=== PATIENT | female | born 1935 | race Caucasian/White ===

== ENCOUNTER 2018-12-15 12:49 | Outpatient (CLI) | payer MEDICARE, BC ==
--- NOTE | 2018-12-15 16:26 | MMO ---
Bilateral MAMMO Bilat Screen [facility]. CLINICAL HISTORY: Patient is 83 years old and is seen for screening. The patient has the following family history of breast cancer: sister, at age 60. The patient has a history of melanoma at age 70. VIEWS: The views performed were: bilateral craniocaudal with tomosynthesis and bilateral mediolateral oblique with tomosynthesis. FILMS COMPARED: The present examination has been compared to prior imaging studies performed at [facility] on 02/17/2007, 03/26/2009, 10/01/2010, 10/12/2012, 08/28/2014, 10/17/2015 and 10/20/2016, and at [facility] on 10/03/2003, 10/08/2004 and 01/06/2006. MAMMOGRAM FINDINGS: There are scattered fibroglandular densities. There are stable benign appearing calcifications seen in both breasts. There are no suspicious masses, suspicious calcifications, or new areas of architectural distortion. IMPRESSION: THERE IS NO MAMMOGRAPHIC EVIDENCE OF MALIGNANCY. A ROUTINE FOLLOW-UP MAMMOGRAM IN 1 YEAR IS RECOMMENDED. THE RESULTS OF THIS EXAM WERE SENT TO THE PATIENT. ACR BI-RADS Category 2 - Benign finding MAMMOGRAPHY NOTE: 1. A negative mammogram report should not delay a biopsy if a dominant of clinically suspicious mass is present. 2. Approximately 10% to 15% of breast cancers are not detected by mammography. 3. Adenosis and dense breasts may obscure an underlying neoplasm.
== END 2018-12-15 12:50 | disposition home or self-care (01) ==
LOC: BICMAMMO 12:49
PROVIDERS: ATTEND Internal Medicine
DX: Z12.31 Encounter for screening mammogram for malignant neoplasm of breast (principal); Z80.3 Family history of malignant neoplasm of breast; Z85.820 Personal history of malignant melanoma of skin
CPT/HCPCS: 77063; 77067

== ENCOUNTER 2019-02-05 10:44 | Emergency (ER) | payer MEDICARE, BC ==
[2019-02-05 11:14] LABS: #Basophils 0.1 thou/uL (0.0-0.2); #Eosinphils 0.1 thou/uL (0.0-0.7); #Lymphocytes 2.2 thou/uL (1.20-3.40); #Monocytes 0.5 thou/uL (0.11-0.59); #Neutrophils 3.2 thou/uL (1.40-6.50); %Basophils 1.9 % (0.0-1.0); %Lymphocytes 35.5 % (21.0-51.0); %Monocytes 7.9 % (0.0-10.0); %Neutrophils 52.7 % (42.0-75.0); Hemoglobin 12.8 g/dL (12.0-16.0); Mean Corpuscular HGB CONC 32.9 g/dL (32.0-36.0); Mean Corpuscular Volume 97.3 fL (78.0-98.0); Mean Platelet Volume 8.1 fL (7.4-10.4); Platelet Count 232 thou/uL (130-400); RBC Distribution Width 12.2 % (11.5-14.5); White Blood Cell (WBC) Count 6.1 thou/uL (4.8-10.8)
[2019-02-05 11:28] LABS: ALT (SGPT) Less than 7 U/L (8-55); AST (SGOT) 15 U/L (5-34); Alkaline Phosphatase 71 U/L (40-150); Anion Gap 19 mmol/L (10-20); BUN (Urea Nitrogen) 13 mg/dL (9.8-20.1); Bilirubin, Total 0.7 mg/dL (0.2-1.2); Calc. Creatinine Clearance 0 mL/min (70-130); Calcium 10.2 mg/dL (7.8-10.44); Carbon Dioxide 20 mmol/L (23-31); Chloride 100 mmol/L (98-107); Estimated GFR-MDRD 52; Globulin 3.1 g/dL (2.4-3.5); Glucose 98 mg/dL (83-110); Potassium 3.9 mmol/L (3.5-5.1); Protein, Total 7.1 g/dL (6.0-8.3); Sodium 135 mmol/L (136-145)
--- NOTE | 2019-02-05 11:39 | RAD ---
PORTABLE CHEST: HISTORY: Mental status change. COMPARISON: 10/24/2015. FINDINGS: Cardiomegaly again noted. Mild vascular congestion. Small bilateral effusions. Prominent aortic ca lcification and degenerative spine change. IMPRESSION: Cardiomegaly and mild congestive change. POS: OFF
[2019-02-05 12:27] LABS: Bilirubin Negative (Negative); Blood, Urine Negative (Negative); Clarity CLEAR (Clear); Glucose, Urine (Dipstick) Negative (Negative); Leukocyte Small (Negative); Nitrite Negative (Negative); Protein, Urine (Dipstick) Trace mg/dL (Neg-Trace); Specific Gravity, Urine 1.011 (1.002-1.036); pH, Urine 6.5 (5.0-9.0)
[2019-02-05 12:29] LABS: Bacteria/HPF None Seen HPF (None Seen); RBC/HPF 0-3 HPF (0-3); Squamous Epithelial 21-50 HPF (0-3)
[2019-02-05 12:30] LABS: Pathc Cast-AUWi Flag 12.37 (0-2.49)
[2019-02-05 12:36] LABS: Hyaline Casts/LPF 7-10 HYALINE CAST LPF (0-3 Hyaline)
== END 2019-02-05 13:05 | disposition home or self-care (01) ==
LOC: ERS 10:44
DX: F03.90 Unspecified dementia, unspecified severity, without behavioral disturbance, psychotic disturbance, mood disturbance, and anxiety (principal); N39.0 Urinary tract infection, site not specified; K21.9 Gastro-esophageal reflux disease without esophagitis; I10 Essential (primary) hypertension; Z87.891 Personal history of nicotine dependence; Z79.899 Other long term (current) drug therapy
CPT/HCPCS: 36415; 71045; 80053; 81003; 81015; 83605; 83690; 83880; 84484; 85025; 87086; 93005; 96360

== ENCOUNTER 2019-02-12 19:05 | Inpatient (IN) | payer MEDICARE, BC ==
[2019-02-12 19:29] LABS: #Basophils 0.1 thou/uL (0.0-0.2); #Eosinphils 0.2 thou/uL (0.0-0.7); #Monocytes 0.7 thou/uL (0.11-0.59); #Neutrophils 3.5 thou/uL (1.40-6.50); %Basophils 1.9 % (0.0-1.0); %Eosinophils 2.3 % (0.0-10.0); %Lymphocytes 39.5 % (21.0-51.0); %Monocytes 9.3 % (0.0-10.0); %Neutrophils 47.1 % (42.0-75.0); Hemoglobin 12.2 g/dL (12.0-16.0); Mean Corpuscular HGB CONC 33.1 g/dL (32.0-36.0); Mean Corpuscular Hemoglobin 32.1 pg (27.0-31.0); Mean Platelet Volume 8.1 fL (7.4-10.4); Platelet Count 269 thou/uL (130-400); RBC Distribution Width 11.8 % (11.5-14.5); White Blood Cell (WBC) Count 7.5 thou/uL (4.8-10.8)
--- NOTE | 2019-02-12 19:39 | RAD ---
AP view chest. HISTORY: Stroke. AP view chest demonstrates cardiomegaly. Calcification of the aorta seen. Pulmonary vascular congesti on noted. Some prominent lung interstitial changes also present. IMPRESSION: Cardiomegaly and pulmonary vascular congestion.
--- NOTE | 2019-02-12 19:47 | CT ---
CT brain. HISTORY: Dementia and altered mental status. There is diffuse cortical atrophy and deep white matter ischemic changes. No evidence of acute intracranial masses, hemorrhages or strokes seen. IMPRESSION: Cortical atrophy and deep white matter ischemic changes.
[2019-02-12 19:51] LABS: ALT (SGPT) 9 U/L (8-55); AST (SGOT) 18 U/L (5-34); Albumin 4.1 g/dL (3.4-4.8); Alkaline Phosphatase 72 U/L (40-150); Anion Gap 18 mmol/L (10-20); BUN (Urea Nitrogen) 15 mg/dL (9.8-20.1); Bilirubin, Total 0.5 mg/dL (0.2-1.2); CK (CPK) 45 U/L (29-168); Calc. Creatinine Clearance 0 mL/min (70-130); Calcium 9.5 mg/dL (7.8-10.44); Carbon Dioxide 22 mmol/L (23-31); Chloride 93 mmol/L (98-107); Estimated GFR-MDRD 48; Globulin 2.7 g/dL (2.4-3.5); Glucose 85 mg/dL (83-110); Potassium 4.5 mmol/L (3.5-5.1); Protein, Total 6.8 g/dL (6.0-8.3); Sodium 128 mmol/L (136-145)
[2019-02-12] MEDS ORDERED: Aspirin Chewable 81 MG TAB ONE (21:33)
[2019-02-12] MEDS ORDERED: Furosemide 40 MG/4 ML VIAL ONE (21:33)
[2019-02-12 21:48] LABS: Bilirubin Negative (Negative); Blood, Urine Negative (Negative); Clarity CLEAR (Clear); Glucose, Urine (Dipstick) Negative (Negative); Leukocyte Negative (Negative); Nitrite Negative (Negative); Protein, Urine (Dipstick) Negative (Neg-Trace); Urobilinogen 0.2 mg/dL (0.2-1.0)
[2019-02-12] MEDS ORDERED: Acetaminophen 325 MG TAB PO PRN (22:52)
[2019-02-12] MEDS ORDERED: Ondansetron PF 4 MG/2 ML Vial IVP PRN (23:01)
[2019-02-12] MEDS ORDERED: cloNIDine 0.1 MG TAB PO PRN (23:11)
[2019-02-12] MEDS ORDERED: hydrALAZINE 20 MG/ML VIAL SLOW IVP PRN (23:11)
[2019-02-12 23:29] LABS: Cardiac Risk 3.1 (Less than 4.5)
--- NOTE | 2019-02-13 02:07 | HP ---
PRIMARY CARE PHYSICIAN: Dr. Woodson. CHIEF COMPLAINT: Altered mental status. HISTORY OF PRESENT ILLNESS: The patient is an 83-year-old female with a past medical history of a new diagnosis of dementia, frequent UTIs, taking Keflex daily as a preventative, hypertension, and GERD, who presents to the ER with a decline in altered mental status. The patient is alert and oriented x3. She is a poor historian for recent events, so HPI was taken from family members at the bedside. The patient's daughter, Lili reports that she has been worried about her mom for he past week. The patient was seen recently in the ER one week ago and given a diagnosis of new onset dementia and UTI, sent home on Macrodantin. Patient has been living on her own at [facility] [address]. The family has been worried about her decrease in mental status, particularly she is not speaking complete sentences, she has some mental pauses, she has been lying in bed more often and has had a decreased appetite. Family reports they have been staying with the patient for the last week and brought her in today as she has been declining in mental status and physical condition. States she is not ambulating as well, has to hold on to objects for stability. Family is concerned patient may have had a stroke. While in the ED, CT of brain was performed and showed cortical atrophy and deep white matter ischemic changes. Chest x-ray done and demonstrated some cardiomegaly with mild pulmonary vascular congestion. Sodium was 128, a decrease from 135 a week ago. Patient was given 500ml of NS, lasix 40mg and an ASA 325mg. Will be admitted to the Stroke unit for further management. PAST MEDICAL HISTORY: The patient's history significant for dementia, which is a new diagnosis. Patient given a prescription for Namenda which has not been filled per the patient's family. She has a history of frequent UTIs, treated with Keflex daily. Also has a history of hypertension and GERD. PAST SURGICAL HISTORY: Significant for tubal ligation, cholecystectomy, colostomy, skin care removal, skin cancer biopsy, and tonsillectomy. FAMILY HISTORY: Significant that her parents in their 90s and the patient has a sibling, a brother who has coronary artery disease. SOCIAL HISTORY: The patient is . She is a former smoker, greater than 50 pack year history, quit in 1987. She is retired. She used to work as a director of a daycare center. PSYCH HISTORY: No present psychiatric history. HOME MEDICATIONS: The patient takes atenolol 50 mg p.o. b.i.d. and omeprazole 20 mg p.o. daily. Family states patient's PCP recently stopped nifedipine and spironolactone- hydrochlorothiazide. REVIEW OF SYSTEMS: Per family, the patient has an unsteady gait, has a decreased appetite and oral intake, and sleeping more. All other systems reviewed and negative unless mentioned in HPI. PHYSICAL EXAMINATION: VITAL SIGNS: The patient's temperature is 98 oral, blood pressure 184/66, pulse 61, respirations 16, and SpO2 saturation 95% on room air. CONSTITUTIONAL: The patient is alert and oriented. Able to follow commands. The patient has some delayed speech. HEENT: Head is atraumatic normocephalic. Eyes, PERRLA. Sclerae nonicteric. oropharynx is clear. Mucous membranes moist. Uvula midline. NECK: Supple. Trachea midline. No thyromegaly. RESPIRATORY: The patient has diminished lung sounds in the bases. Clear to auscultation. No adventitious lung sounds. CARDIOVASCULAR: S1 and S2. No murmurs, rubs, or gallops. GI: Abdomen was soft, nontender. No hepatosplenomegaly. EXTREMITIES: The patient has palpable pedal pulses with brisk cap refill. NEURO: The patient is alert, oriented x3 to person, place, and time. However, the patient was not a good historian in terms for recent activities. Gait was not assessed. SKIN: No rashes. No new lesions. CODE STATUS: POA: Maureen Powell [phone]. She is confirming code status and will update us once she finds the paperwork. LABORATORY DATA: Chemistry; sodium 134, BUN 13, creatinine 1.02, estimated GFR 52. Lactic acid was 2.0. AST and ALT were unremarkable. BNP was 166.8. Troponin I was less than 0.010. Lipase 22. Hematology; WBC 6.1, hemoglobin 12.8, hematocrit 39.0, platelets 232. Her UA has small leukocyte esterase, numerous white blood cells 7 to 10. Urine culture pending. ASSESSMENT AND PLAN: 1. Altered mental status. The patient's CT in the ER was negative for acute changes. We will order MRI, carotid Doppler, and echo. We will consult Stroke Team. 2. Hyponatremia. The patient's sodium upon admission was 128 and previous week was 135. We will place the patient on fluid restriction 1200 mL per day. Recheck BMP in the a.m. 3. Fluid volume overload. Chest x-ray showed pulmonary congestion. The patient was given Lasix 40 IV in the ER. We will monitor and repeat diuretics as needed. 4. Hypertension. We will restart the patient's home medications. 5. New onset dementia. The patient was given prescription for Namenda at previous hospital stay. Per family, they have not filled that prescription. We will ask Neurology to consult. 6. Gastrointestinal and deep venous thrombosis prophylaxis. 7. Hospital course is dependent on clinical findings. Job ID: [id number] MTDD
[2019-02-13 05:05] LABS: #Basophils 0.1 thou/uL (0.0-0.2); #Eosinphils 0.1 thou/uL (0.0-0.7); #Lymphocytes 1.9 thou/uL (1.20-3.40); #Monocytes 0.5 thou/uL (0.11-0.59); #Neutrophils 3.9 thou/uL (1.40-6.50); %Basophils 1.6 % (0.0-1.0); %Eosinophils 0.8 % (0.0-10.0); %Lymphocytes 29.4 % (21.0-51.0); %Monocytes 7.4 % (0.0-10.0); %Neutrophils 60.8 % (42.0-75.0); Hemoglobin 11.1 g/dL (12.0-16.0); Mean Corpuscular HGB CONC 33.2 g/dL (32.0-36.0); Mean Corpuscular Hemoglobin 32.1 pg (27.0-31.0); Mean Corpuscular Volume 96.7 fL (78.0-98.0); Platelet Count 241 thou/uL (130-400); RBC Distribution Width 11.7 % (11.5-14.5); Red Blood Cell (RBC) Count 3.45 mill/uL (4.20-5.40); White Blood Cell (WBC) Count 6.5 thou/uL (4.8-10.8)
[2019-02-13 05:35] LABS: ALT (SGPT) 8 U/L (8-55); AST (SGOT) 15 U/L (5-34); Albumin 3.6 g/dL (3.4-4.8); Alkaline Phosphatase 63 U/L (40-150); Anion Gap 16 mmol/L (10-20); BUN (Urea Nitrogen) 14 mg/dL (9.8-20.1); Bilirubin, Total 0.4 mg/dL (0.2-1.2); Calc. Creatinine Clearance 35 mL/min (70-130); Calcium 9.3 mg/dL (7.8-10.44); Carbon Dioxide 22 mmol/L (23-31); Chloride 93 mmol/L (98-107); Estimated GFR-MDRD 49; Globulin 2.7 g/dL (2.4-3.5); Glucose 83 mg/dL (83-110); Potassium 3.9 mmol/L (3.5-5.1); Protein, Total 6.3 g/dL (6.0-8.3); Sodium 127 mmol/L (136-145)
[2019-02-13] MEDS ORDERED: Famotidine 20 MG TAB PO SCH (09:00)
[2019-02-13] MEDS ORDERED: Enoxaparin Sodium 40 MG/0.4 ML SYRINGE SC SCH (09:00)
[2019-02-13] MEDS: Famotidine 20 MG TAB PO SCH (09:12)
[2019-02-13] MEDS: Aspirin 325 MG TAB PO SCH (09:12)
--- NOTE | 2019-02-13 09:58 | ULT ---
EXAM: Carotid ultrasound HISTORY: Altered mental status with possible CVA COMPARISON: None TECHNIQUE: Multiplanar grayscale and color Doppler images were obtained in a carotid ultrasound. Spec tral analysis of the Doppler waveforms were performed. FINDINGS: No significant plaque is visualized in either internal carotid artery. No significant plaque is seen in either common carotid artery. The Doppler waveforms are normal in the visualized vessels. Peak systolic velocity in the right internal carotid artery 73 cm/s. Peak systolic velocity in the right common carotid artery 92 cm/s. The right ICA/CCA ratio is 0.8. Peak systolic velocity in the left internal carotid artery 95 cm/s. Peak systolic velocity in the left common carotid artery 97 cm/s. The left ICA/CCA ratio is 1.0. Both vertebral arteries demonstrate antegrade flow without focal stenosis IMPRESSION: No evidence of hemodynamically significant stenosis.
--- NOTE | 2019-02-13 10:35 | MRI ---
MRI brain noncontrast HISTORY: CVA. FINDINGS: There is no evidence of acute intracranial hemorrhage or infarct. Mild chronic ischemic sma ll vessel disease. Diffuse cortical atrophy. There is no mass effect or shift of midline structures. Visualized paranasal sinuses remain well-aerated. IMPRESSION: No acute intracranial abnormalities are demonstrated.
--- NOTE | 2019-02-13 16:25 | PDOC.EVN ---
Event Note - Event Note Event Note: pt seen an examined agree with physician assistance assessment and plan. spoke with pt's family and updated family about her lab results. will order serum osmolarity and urine osmol and urine Na. Pt's mri normal. pt does have a hx of dementia which according to her family has worsen. She had a recent uti however currently she has no sign of infection. PT to evaluate pt. she may need some rehab vs home with PT.
--- NOTE | 2019-02-13 17:23 | CON ---
DATE OF CONSULTATION: 02/13/2019 ERRORS IN DICTATION. PLEASE SEE DUPLICATE FOR FULL REPORT Job ID: [id number] MTDD
--- NOTE | 2019-02-13 17:49 | CON ---
DATE OF CONSULTATION: 02-13-19 This is a telemedicine consultation with RNJoyce. CHIEF COMPLAINT: Altered mental status, slurred speech, right arm weakness. HISTORY OF PRESENT ILLNESS: The patient is an 83-year-old lady with history of dementia, and daughters were in the room and provided medical history. She was altered and did not talk much and was confused yesterday. In the last 2 weeks, she has lost her independence and her daughters have been looking after her and going to her place more often everyday, and the patient's daughter was getting her supper ready yesterday and she had weakness of the right arm. She could not move the right arm and she was slurring her speech and panicked. She never tried to stand. She had no prior CVA. On Thursday, she saw her physician at about 01:15 p.m., she did not look right. She had slurred speech. She was altered, did not talk much. She uses a cane normally sometimes, but can walk without it usually. In the last 2 weeks , there has been some loss of independence. On Thursday, she was brought to the hospital. She has been worse with her cognitive issues within the past 1 week. PREVIOUS MEDICAL HISTORY: 1. Hypertension. 2. Mild elevation of blood glucose. 3. Kidney problems. 4. Gastroesophageal reflux disease. PAST SURGICAL HISTORY: 1. Gallbladder surgery. 2. Colonoscopy. 3. Skin cancer with melanoma on the arm 10 years ago, basal-cell cancer. 4. Tonsillectomy. FAMILY HISTORY: Father in his 90s from prostate cancer. Mother at 78 from lung cancer. Brother at 94 from coronary artery disease. Sister at 90 from strokes and dementia. She has two daughters, 54 and 53, and son is 49 with hypertension, hypercholesterolemia. 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 She lived by herself. Her children helped this past week. Otherwise, she was independent. REVIEW OF SYSTEMS: PULMONARY: Negative for cough or shortness of breath. GI: Negative for any diarrhea, vomiting, or nausea. GENITOURINARY: Negative for bladder issues. HEMATOLOGIC: Negative for bleeding diathesis or anemia. DERMATOLOGIC: Negative for skin rash. NEUROLOGIC: Positive for slurred speech and right arm weakness, which were brief, and some alteration of mental status in the past week to 2 weeks. LABORATORY DATA: White count 6.5, hemoglobin 11.1, hematocrit 33.4, and platelet count 241. Sodium 127, potassium 3.9, chloride 93, BUN 14, creatinine 1.07. AST 15, ALT 8, alkaline phosphatase 63, triglyceride 125, cholesterol 198, LDL 110, HDL 63, TSH 1.45. Her MRI of the brain did not show any acute intracranial abnormalities, and she is pending echocardiogram and carotid Doppler. ALLERGIES: SHE IS ALLERGIC TO CIPRO AND SULFA. PHYSICAL EXAMINATION: VITAL SIGNS: Blood pressure is 142/62, O2 saturation is 94, pulse is 62, temperature is 98.6. GENERAL APPEARANCE: Thin-built, well-nourished lady. CHEST: Clear vesicular breathing. CARDIOVASCULAR: S1, S2 heard. No murmurs. ABDOMEN: Soft. NEUROLOGICAL: She is oriented to month, not to date or year or place. Pupils are 2 mm. Tongue is midline. No facial asymmetry is noted. Normal sensation of face bilaterally. Normal hearing to finger rub bilaterally. Normal elevation of palate. Motor; bulk normal, tone normal. Strength 5/5 throughout in upper and lower extremities in iliopsoas, hamstrings, quadriceps, ankle dorsiflexion and plantar flexion, deltoid, biceps, triceps, wrist extension and flexion, finger extension and flexion. Deep tendon reflexes 1+ in the lower extremity, 2+ in the upper extremity bilaterally. Sensory, normal to touch bilaterally. Cerebellar, normal [id number] and [id number]. IMPRESSION: The patient is an 83-year-old lady with pre-existing dementia and recent cognitive worsening in the past 1 to 2 weeks, and she had loss of right arm strength and difficulty speech yesterday, which prompted this hospital admission. At this time, her examination is normal. Her symptoms have resolved. Her likely diagnosis is transient ischemic attack. MRI is negative for acute intracranial abnormalities. We are waiting on echocardiogram and carotid Doppler to complete TIA workup. RECOMMENDATIONS: Please make sure she is on aspirin and statin prior to discharge. I will follow up as needed. Job ID: [id number] MTDD
[2019-02-13] MEDS ORDERED: diphenhydrAMINE 25 MG CAP PO PRN (18:29)
[2019-02-13] MEDS ORDERED: Melatonin 3 MG TAB PO PRN (18:30)
--- NOTE | 2019-02-13 18:42 | PRG ---
DATE OF SERVICE: 02/13/2019 SUBJECTIVE: Ms. Sage is a pleasant 83-year-old female with chronic hyponatremia, hypertension, and frequent UTIs, who presented to the emergency department with complaints of altered mental status, slurred speech, and some intermittent right upper extremity weakness per family members. The patient does have underlying dementia, but appears to be back to her baseline mentation at my interview. Family is at the bedside. Her stroke workup has been negative thus far. The patient has no complaints. She does have somewhat poor appetite. She has no chest pain or shortness of breath. She denies any dysuria or abdominal discomfort. OBJECTIVE: VITAL SIGNS: Blood pressure 142/62, pulse is 62, O2 saturation is 94% on room air, and respirations 16. The patient is afebrile, 98.6 degrees. GENERAL: The patient is an elderly female, resting comfortably in bed , in no acute distress. HEENT: Head is atraumatic and normocephalic. Mucous membranes are moist. Extraocular movements intact. NECK: Supple. No lymphadenopathy. No carotid bruits. CV: S1 and S2. Regular rate and rhythm. No appreciable murmurs, rubs, or gallops. LUNGS: Regular respiratory rate and pattern, overall clear. ABDOMEN: Positive bowel sounds. Soft, nontender. EXTREMITIES: No edema. +2 DP pulses bilaterally. SKIN: Warm and dry. No abrasions. NEUROLOGIC: Cranial nerves 2 through 12 intact. The patient has no focal deficits at this time, although does have poor strength in all extremities. LABORATORY DATA: Hemoglobin 11.1, white blood cell count 6.5, hematocrit 33.4, and platelet count 241. Sodium 127, potassium 3.9, creatinine 1.07. AST 15, ALT 8, alkaline phosphatase 63. TSH 1.4533. Urinalysis is negative for signs of infection. ASSESSMENT: 1. Transient right -sided upper extremity weakness and slurred speech, consistent with transient ischemic attack, MRI negative for acute cerebrovascular accident. 2. Recent urinary tract infection, status post treatment. UA negative for active infection. 3. Dementia, progressive. 4. Overall generalized weakness and debility. 5. Dysphagia. 6. Chronic hyponatremia. PLAN: Obtain serum and urine osmolality as well as urine sodium. Hold all Lasix for now. PT evaluation is pending, and the patient may benefit from rehab versus care home. We will continue aspirin daily and add statin. The patient's workup thus far is negative for acute CVA, echo remains pending. Further recommendations based on hospital course. The care of this patient has been discussed with Dr. Eng, who agrees with the above. Job ID: [id number] MTDD
[2019-02-13] MEDS: Atenolol 50 MG TAB PO SCH (22:18)
[2019-02-13] MEDS: Atorvastatin Calcium 20 MG TAB PO SCH (22:18)
[2019-02-14] MEDS ORDERED: Lorazepam 2 MG/ML VIAL SLOW IVP PRN (00:58)
[2019-02-14 05:06] LABS: #Basophils 0.1 thou/uL (0.0-0.2); #Eosinphils 0.2 thou/uL (0.0-0.7); #Lymphocytes 1.5 thou/uL (1.20-3.40); #Monocytes 0.7 thou/uL (0.11-0.59); #Neutrophils 3.1 thou/uL (1.40-6.50); %Basophils 1.6 % (0.0-1.0); %Eosinophils 4.1 % (0.0-10.0); %Lymphocytes 27.3 % (21.0-51.0); %Monocytes 12.8 % (0.0-10.0); %Neutrophils 54.2 % (42.0-75.0); Hemoglobin 10.5 g/dL (12.0-16.0); Mean Corpuscular HGB CONC 33.1 g/dL (32.0-36.0); Mean Corpuscular Volume 96.8 fL (78.0-98.0); Platelet Count 244 thou/uL (130-400); RBC Distribution Width 11.8 % (11.5-14.5); Red Blood Cell (RBC) Count 3.29 mill/uL (4.20-5.40); White Blood Cell (WBC) Count 5.7 thou/uL (4.8-10.8)
[2019-02-14 05:28] LABS: ALT (SGPT) 8 U/L (8-55); AST (SGOT) 15 U/L (5-34); Albumin 3.4 g/dL (3.4-4.8); Alkaline Phosphatase 56 U/L (40-150); Anion Gap 12 mmol/L (10-20); BUN (Urea Nitrogen) 13 mg/dL (9.8-20.1); Bilirubin, Total 0.5 mg/dL (0.2-1.2); Calc. Creatinine Clearance 33 mL/min (70-130); Calcium 9.3 mg/dL (7.8-10.44); Carbon Dioxide 26 mmol/L (23-31); Chloride 94 mmol/L (98-107); Estimated GFR-MDRD 45; Globulin 2.6 g/dL (2.4-3.5); Glucose 75 mg/dL (83-110); Potassium 3.7 mmol/L (3.5-5.1); Sodium 128 mmol/L (136-145)
[2019-02-14] MEDS: Famotidine 20 MG TAB PO SCH (08:20)
[2019-02-14] MEDS: Aspirin 325 MG TAB PO SCH (08:20)
[2019-02-14] MEDS: Atenolol 50 MG TAB PO SCH ×2 (08:20→21:01)
[2019-02-14] MEDS: Enoxaparin Sodium 30 MG/0.3 ML SYRINGE SC SCH (08:21)
[2019-02-14] MEDS ORDERED: Prevnar 13-Val Conj/PF 0.5 ML SYRINGE IM ONE (09:00)
[2019-02-14 12:44] LABS: Anion Gap 14 mmol/L (10-20); BUN (Urea Nitrogen) 12 mg/dL (9.8-20.1); Calc. Creatinine Clearance 37 mL/min (70-130); Calcium 9.5 mg/dL (7.8-10.44); Carbon Dioxide 23 mmol/L (23-31); Chloride 93 mmol/L (98-107); Estimated GFR-MDRD 52; Glucose 101 mg/dL (83-110); Potassium 3.7 mmol/L (3.5-5.1); Sodium 126 mmol/L (136-145)
[2019-02-14] MEDS ORDERED: Sodium Chloride 0.9% 1,000 ML IV SCH (13:00)
[2019-02-14] MEDS ORDERED: Furosemide 40 MG/4 ML VIAL SLOW IVP SCH (14:15)
--- NOTE | 2019-02-14 14:18 | PDOC.PN ---
- Subjective Encounter Start Date: 02/14/19 Encounter Start Time: 14:18 Patient lying comfortably in bed, family at bedside. She denies chest pain, shortness of breath. Lab showing SIADH, sodium down to 126 therefore fluids stopped. Consult to nephrology placed. - Objective MAR Reviewed: Yes Vital Signs & Weight: Vital Signs (12 hours) Temp Pulse Resp BP BP Pulse Ox 02/14/19 11:51 97.9 F 53 L 16 162/65 H 94 L 02/14/19 08:20 49 L 188/64 H 02/14/19 07:51 97.5 F L 51 L 16 94 L Weight Admit Weight 126 lb Weight 126 lb I&O: 02/13/19 02/14/19 02/15/19 06:59 06:59 06:59 Intake Total 60 620 Output Total 700 Balance 60 -80 Result Diagrams: 02/14/19 04:32 02/14/19 12:14 Radiology Reviewed by me: Yes Phys Exam - Physical Examination Constitutional: NAD HEENT: moist MMs, oral pharynx no lesions Neck: no nodes, supple Respiratory: no wheezing Cardiovascular: RRR, no significant murmur Gastrointestinal: soft, no distention, positive bowel sounds Musculoskeletal: no edema, pulses present Neurological: non-focal, moves all 4 limbs Lymphatic: no nodes Psychiatric: normal affect Skin: no rash, cap refill <2 seconds Dx/Plan (1) SIADH (syndrome of inappropriate ADH production) Status: Acute (2) Hyponatremia Code(s): E87.1 - HYPO-OSMOLALITY AND HYPONATREMIA Status: Acute (3) TIA (transient ischemic attack) Code(s): G45.9 - TRANSIENT CEREBRAL ISCHEMIC ATTACK, UNSPECIFIED Status: Acute (4) Dementia Code(s): F03.90 - UNSPECIFIED DEMENTIA WITHOUT BEHAVIORAL DISTURBANCE Status: Acute - Plan cont current plan of care, plan discussed w/ family, PT/OT * D/c IV fluids as labs indicating SIADH, given IV furosemide * Recheck sodium q4h and place consult for Nephrology * Discussed with dietition and recommend increase protein as patient not having good intake * Continue asa and statin for TIA and other home medications * Recheck BMP in the morning
[2019-02-14 15:46] LABS: Sodium 128 mmol/L (136-145)
[2019-02-14] MEDS: Atorvastatin Calcium 20 MG TAB PO SCH (21:02)
[2019-02-14 22:23] LABS: Sodium 129 mmol/L (136-145)
[2019-02-15 05:57] LABS: #Basophils 0.1 thou/uL (0.0-0.2); #Eosinphils 0.2 thou/uL (0.0-0.7); #Lymphocytes 1.3 thou/uL (1.20-3.40); #Monocytes 0.9 thou/uL (0.11-0.59); #Neutrophils 4.4 thou/uL (1.40-6.50); %Eosinophils 2.9 % (0.0-10.0); %Lymphocytes 19.4 % (21.0-51.0); %Monocytes 12.5 % (0.0-10.0); %Neutrophils 64.3 % (42.0-75.0); Hemoglobin 12.2 g/dL (12.0-16.0); Mean Corpuscular HGB CONC 32.8 g/dL (32.0-36.0); Mean Corpuscular Hemoglobin 32.1 pg (27.0-31.0); Mean Platelet Volume 8.1 fL (7.4-10.4); Platelet Count 253 thou/uL (130-400); RBC Distribution Width 11.8 % (11.5-14.5); Red Blood Cell (RBC) Count 3.81 mill/uL (4.20-5.40); White Blood Cell (WBC) Count 6.9 thou/uL (4.8-10.8)
[2019-02-15 06:45] LABS: Anion Gap 14 mmol/L (10-20); BUN (Urea Nitrogen) 14 mg/dL (9.8-20.1); Calc. Creatinine Clearance 37 mL/min (70-130); Calcium 9.6 mg/dL (7.8-10.44); Carbon Dioxide 24 mmol/L (23-31); Chloride 94 mmol/L (98-107); Estimated GFR-MDRD 52; Glucose 72 mg/dL (83-110); Potassium 3.7 mmol/L (3.5-5.1); Sodium 128 mmol/L (136-145)
[2019-02-15] MEDS ORDERED: Cephalexin 250 MG CAP PO SCH (08:30)
[2019-02-15] MEDS ORDERED: Furosemide 40 MG/4 ML VIAL SLOW IVP SCH (09:00)
[2019-02-15] MEDS ORDERED: Tolvaptan 15 MG TAB PO ONE (09:00)
--- NOTE | 2019-02-15 09:31 | PRG ---
DATE OF SERVICE: 02/15/2019 SUBJECTIVE: Patient was seen and examined at bedside and overnight events noted. Patient denies any shortness of breath or chest pain or palpitation. No history of nausea or vomiting or diarrhea or fever or chills or cramps. OBJECTIVE: GENERAL: This is an elderly female, in no apparent distress. VITAL SIGNS: Temperature Blood pressure 138/67. HEENT: Atraumatic, normocephalic. Oral mucosa is moist NECK: Supple. CARDIOVASCULAR: S1, S2 heard. Rate and rhythm regular. RESPIRATORY: Clear to auscultation. GASTROINTESTINAL: Abdomen is soft. MUSCULOSKELETAL: No tenderness. No edema. DERMATOLOGIC: No skin rash. NEUROLOGIC: Alert and awake and oriented X3. No focal neurologic deficits. Moving all the extremities. PSYCHIATRIC: Mood and affect normal. LABORATORY DATA: Sodium is 128, potassium is 3.7. ASSESSMENT AND PLAN: 1. Hyponatremia, most likely syndrome of inappropriate antidiuretic hormone secretion, did not respond to fluid restriction. We will add tolvaptan and monitor sodium closely. 2. Hypochloremia. 3. Edema, controlled. 4. Hypertension. 5. Anemia, mild. 6. Syndrome of inappropriate antidiuretic hormone secretion. We will monitor. Medication list reviewed. Plan is to have tolvaptan and limit fluid intake. We will follow. Job ID: [id number]
[2019-02-15] MEDS: Enoxaparin Sodium 30 MG/0.3 ML SYRINGE SC SCH (09:38)
[2019-02-15] MEDS: Famotidine 20 MG TAB PO SCH (09:39)
[2019-02-15] MEDS: Aspirin 325 MG TAB PO SCH (09:39)
[2019-02-15] MEDS: Atenolol 50 MG TAB PO SCH ×2 (09:40→20:04)
--- NOTE | 2019-02-15 10:31 | PDOC.PN ---
- Subjective Encounter Start Date: 02/15/19 Encounter Start Time: 07:10 -: old records requested/rev pt has poor po intake, sodium still low - Objective MAR Reviewed: Yes Vital Signs & Weight: Vital Signs (12 hours) Temp Pulse Resp BP BP Pulse Ox 02/15/19 09:40 56 L 133/55 L 02/15/19 07:39 97.7 F 56 L 18 138/67 94 L 02/15/19 04:00 98.4 F 59 L 19 124/66 97 02/14/19 23:52 98.1 F 59 L 18 159/75 H 94 L Weight Admit Weight 126 lb Weight 126 lb I&O: 02/14/19 02/15/19 02/16/19 06:59 06:59 06:59 Intake Total 620 80 Output Total 700 Balance -80 80 Result Diagrams: 02/15/19 05:17 02/15/19 05:17 Radiology Reviewed by me: Yes EKG Reviewed by me: Yes Phys Exam - Physical Examination Constitutional: NAD HEENT: PERRLA, moist MMs, sclera anicteric Neck: no JVD, supple Respiratory: no wheezing, no rales, no rhonchi Cardiovascular: RRR, no significant murmur, no rub Gastrointestinal: soft, non-tender, no distention, positive bowel sounds Musculoskeletal: no edema, pulses present Neurological: non-focal, normal sensation Psychiatric: normal affect, A&O x 3 Skin: no rash, normal turgor Dx/Plan (1) Dementia Code(s): F03.90 - UNSPECIFIED DEMENTIA WITHOUT BEHAVIORAL DISTURBANCE Status: Acute (2) Hyponatremia Code(s): E87.1 - HYPO-OSMOLALITY AND HYPONATREMIA Status: Acute (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 * rehab screen Review of Systems - Review of Systems ENT: negative: Ear Pain, Ear Discharge, Nose Pain, Nose Discharge, Nose Congestion, Mouth Pain, Mouth Swelling, Throat Pain, Throat Swelling, Other Respiratory: negative: Cough, Dry, Shortness of Breath, Hemoptysis, SOB with Excertion, Pleuritic Pain, Sputum, Wheezing Cardiovascular: negative: chest pain, palpitations, orthopnea, paroxysmal nocturnal dyspnea, edema, light headedness, other Gastrointestinal: negative: Nausea, Vomiting, Abdominal Pain, Diarrhea, Constipation, Melena, Hematochezia, Other Genitourinary: negative: Dysuria, Frequency, Incontinence, Hematuria, Retention , Other Musculoskeletal: negative: Neck Pain, Shoulder Pain, Arm Pain, Back Pain, Hand Pain, Leg Pain, Foot Pain, Other Skin: negative: Rash, Lesions, Steven, Bruising, Other - Medications/Allergies Allergies/Adverse Reactions: Allergies Allergy/AdvReac Type Severity Reaction Status Date / Time ciprofloxacin [From Cipro] Allergy Verified 10/24/15 21:07 ciprofloxacin HCl Allergy Verified 10/24/15 21:07 [From Cipro] Sulfa (Sulfonamide Allergy Verified 10/24/15 21:08 Antibiotics) Medications: Current Medications Acetaminophen (Tylenol) 650 mg PO Q4H PRN PRN Reason: Headache/Fever/Mild Pain (1-3) Aspirin (Aspirin) 325 mg PO QAM-WM [facility] Last Admin: 02/15/19 09:39 Dose: 325 mg Atenolol (Tenormin) 25 mg PO BID [facility] Last Admin: 02/15/19 09:40 Dose: 25 mg Atorvastatin Calcium (Lipitor) 20 mg PO HS [facility] Last Admin: 02/14/19 21:02 Dose: 20 mg Cephalexin (Keflex) 250 mg PO QPM [facility] Clonidine (Catapres) 0.1 mg PO Q4H PRN PRN Reason: Hypertension Diphenhydramine HCl (Benadryl) 25 mg PO Q4H PRN PRN Reason: Itching & Insomnia Last Admin: 02/13/19 18:52 Dose: 25 mg Enoxaparin Sodium (Lovenox) 30 mg SC 0900 [facility] Last Admin: 02/15/19 09:38 Dose: 30 mg Famotidine (Pepcid) 20 mg PO DAILY [facility] Last Admin: 02/15/19 09:39 Dose: 20 mg Furosemide (Lasix) 40 mg SLOW IVP DAILY [facility] Last Admin: 02/15/19 09:38 Dose: 40 mg Hydralazine HCl (Apresoline) 10 mg SLOW IVP Q4H PRN PRN Reason: SBP > 180 and HR < 70 Lorazepam (Ativan) 0.5 mg SLOW IVP Q6H PRN PRN Reason: Anxiety/Agitation Last Admin: 02/14/19 01:18 Dose: 0.5 mg Melatonin (Melatonin) 3 mg PO HSPRN PRN PRN Reason: Insomnia Last Admin: 02/13/19 22:18 Dose: 3 mg Ondansetron HCl (Zofran) 4 mg IVP Q6H PRN PRN Reason: Nausea/Vomiting Last Admin: 02/12/19 23:16 Dose: 4 mg Senna/Docusate Sodium (Senokot S) 2 tab PO BIDPRN PRN PRN Reason: Constipation Sodium Chloride (Flush - Normal Saline) 10 ml IVF PRN PRN PRN Reason: Saline Flush Last Admin: 02/14/19 01:21 Dose: 10 ml
[2019-02-15 10:57] VITALS: BMI 24.4
[2019-02-15 16:51] LABS: Potassium 3.5 mmol/L (3.5-5.1)
[2019-02-15] MEDS: Atorvastatin Calcium 20 MG TAB PO SCH (20:03)
[2019-02-15] MEDS: Cephalexin 250 MG CAP PO SCH (20:03)
[2019-02-16 06:12] LABS: #Basophils 0.1 thou/uL (0.0-0.2); #Eosinphils 0.1 thou/uL (0.0-0.7); #Lymphocytes 1.7 thou/uL (1.20-3.40); #Monocytes 0.8 thou/uL (0.11-0.59); #Neutrophils 3.3 thou/uL (1.40-6.50); %Basophils 0.8 % (0.0-1.0); %Eosinophils 2.4 % (0.0-10.0); %Lymphocytes 27.8 % (21.0-51.0); %Neutrophils 55.9 % (42.0-75.0); Hemoglobin 12.5 g/dL (12.0-16.0); Mean Corpuscular HGB CONC 32.8 g/dL (32.0-36.0); Mean Corpuscular Hemoglobin 31.7 pg (27.0-31.0); Mean Corpuscular Volume 96.8 fL (78.0-98.0); Mean Platelet Volume 8.1 fL (7.4-10.4); Platelet Count 264 thou/uL (130-400); RBC Distribution Width 11.8 % (11.5-14.5); Red Blood Cell (RBC) Count 3.94 mill/uL (4.20-5.40); White Blood Cell (WBC) Count 5.9 thou/uL (4.8-10.8)
[2019-02-16 06:29] LABS: Anion Gap 13 mmol/L (10-20); BUN (Urea Nitrogen) 17 mg/dL (9.8-20.1); Calc. Creatinine Clearance 33 mL/min (70-130); Calcium 9.8 mg/dL (7.8-10.44); Carbon Dioxide 28 mmol/L (23-31); Chloride 96 mmol/L (98-107); Estimated GFR-MDRD 46; Glucose 81 mg/dL (83-110); Potassium 3.4 mmol/L (3.5-5.1); Sodium 134 mmol/L (136-145)
[2019-02-16] MEDS ORDERED: Potassium Chloride 20 MEQ TAB PO SCH (08:30)
--- NOTE | 2019-02-16 09:05 | CON ---
DATE OF CONSULTATION: 02/14/2019 CONSULTING PHYSICIAN: Dr. Renenr REASON FOR CONSULTATION Hyponatremia. REASON FOR ADMISSION: Altered mentation. HISTORY OF PRESENT ILLNESS: An 83-year-old female with past medical history of dementia, UTIs, hypertension, and GERD, came to the hospital with above complaints and was found to have hyponatremia on admission, her sodium was 128, and she was started on IV fluids and dropped to 126 this morning, and Nephrology was consulted. Repeat sodium this afternoon was 128. The patient has been on IV fluids, which is stopped and currently, on Lasix and fluid restriction. The patient denies any nausea or vomiting. No chest pain or palpitation. No fever or chills the patient is still confused, even though her stroke-like symptoms are better. PAST MEDICAL HISTORY: Positive for dementia, UTI, GERD, and hypertension. PAST SURGICAL HISTORY: Tubal ligation, cholecystectomy, colostomy, skin cancer removal, and tonsillectomy. HOME MEDICATIONS: 1. Atenolol. 2. Omeprazole. 3. Spironolactone. 4. Hydrochlorothiazide. 5. Nifedipine. ALLERGIES: CIPRO AND SULFONAMIDE. SOCIAL HISTORY: No smoking, alcohol, or illicit drugs. FAMILY HISTORY: No history of kidney disease. REVIEW OF SYSTEMS: CONSTITUTIONAL: Negative for weight loss or gain, ability to conduct usual activities. SKIN: Negative for rash, itching. EYES: Negative for double vision, pain. ENT/MOUTH: Negative for nose bleeding, neck stiffness, pain, tenderness. CARDIOVASCULAR: Negative for palpitations, dyspnea on exertion, orthopnea. RESPIRATORY: Negative for shortness of breath, wheezing, cough, hemoptysis, fever or night sweats. GASTROINTESTINAL: Negative for poor appetite, abdominal pain, heartburn, nausea, vomiting, constipation, or diarrhea. GENITOURINARY: Negative for urgency, frequency, dysuria, nocturia. MUSCULOSKELETAL: Negative for pain, swelling. NEUROLOGIC/PSYCHIATRIC: Negative for anxiety, depression. ALLERGY/IMMUNOLOGIC: Negative for skin rash, bleeding tendency. PHYSICAL EXAMINATION: GENERAL: Reveals a thin-built female, in no apparent distress. VITAL SIGNS: Temperature 97.6, pulse 52, respiratory rate 16, and blood pressure . HEENT: Atraumatic and normocephalic. Oral mucosa is dry. NECK: Supple. CV: S1 and S2 heard. Rate and rhythm regular. RESPIRATORY: Clear. GI: Abdomen is soft. MUSCULOSKELETAL: 1+ edema. DERMATOLOGIC: No skin rash. NEUROLOGIC: Alert and awake. PSYCHIATRIC: Mood and affect normal. LABORATORY DATA: Sodium is 128. Urine osmolality 355. Urine sodium is 50. Serum osmolality 271. Hemoglobin 10.5. ASSESSMENT AND PLAN: 1. Hyponatremia, most likely syndrome of inappropriate antidiuretic hormone secretion. 2. Acute kidney injury, better. 3. Hypochloremia. 4. Syndrome of inappropriate antidiuretic hormone secretion. 5. . 6. Mild anemia. 7. Altered mentation. Seems like hyponatremia from Syndrome of inappropriate antidiuretic hormone secretion from lab studies. Continue on fluid restriction. We will monitor labs and we will follow. Agree with stopping IV fluids for now. We will continue to follow. Thank you for the consult. Job ID: [id number]
[2019-02-16] MEDS: Enoxaparin Sodium 30 MG/0.3 ML SYRINGE SC SCH (09:45)
[2019-02-16] MEDS: Aspirin 325 MG TAB PO SCH (09:45)
[2019-02-16] MEDS: Atenolol 50 MG TAB PO SCH ×2 (09:45→21:11)
[2019-02-16] MEDS: Famotidine 20 MG TAB PO SCH (09:47)
--- NOTE | 2019-02-16 10:43 | PRG ---
DATE OF SERVICE: 02/16/2019 SUBJECTIVE: Patient was seen and examined at bedside and overnight events noted. Patient denies any shortness of breath or chest pain or palpitation. No history of nausea or vomiting or diarrhea or fever or chills or cramps. OBJECTIVE: GENERAL: This is a well-built female, in no apparent distress. VITAL SIGNS: Temperature 99. Heart rate 58. Respiratory rate 15. Blood pressure 136/63. HEENT: Atraumatic, normocephalic. Oral mucosa is moist NECK: Supple. CARDIOVASCULAR: S1, S2 heard. Rate and rhythm regular. RESPIRATORY: Clear to auscultation. GASTROINTESTINAL: Abdomen is soft. MUSCULOSKELETAL: No tenderness. No edema. DERMATOLOGIC: No skin rash. NEUROLOGIC: Alert and awake and oriented X3. No focal neurologic deficits. Moving all the extremities. PSYCHIATRIC: Mood and affect normal. LABORATORY DATA: Potassium is 3.4, BUN is 17, creatinine is 1.1. ASSESSMENT AND PLAN: 1. Hyponatremia. Sodium is much better. Continue on fluid restriction. Add a dose of tolvaptan. 2. Hypochloremia. 3. Hypertension. 4. Anemia, mild. 5. Acute kidney injury. Sodium better. Continue fluid restriction. Job ID: [id number]
--- NOTE | 2019-02-16 12:34 | PRG ---
DATE OF SERVICE: 02/16/2019 SUBJECTIVE: The patient is seen and examined at the bedside. Her two daughters are present in the room during my visit. The patient seems to be doing quite well. Her appetite is at her baseline. She is waiting for the rehab screening to be done today and if she is improved, she will be transferred there. OBJECTIVE: VITAL SIGNS: Blood pressure is 147/57, pulse is 59, respiratory rate is 20, and O2 saturation is 94% on room air. HEAD: Atraumatic and normocephalic. Eyes are PERRLA. Sclerae are nonicteric. Oral mucosa is moist. NECK: Supple. LUNGS: Clear. HEART: S1 and S2 normal. No S3. No S4. ABDOMEN: Soft and nontender. EXTREMITIES: No clubbing, cyanosis, or edema. NEUROLOGIC: She is alert and oriented x3. She moves her all 4 extremities. She follows my commands. IMPRESSION: 1. Hyponatremia, improved. Her sodium is up to 134. 2. Syndrome of inappropriate antidiuretic hormone secretion. 3. Transient ischemic attack. 4. Dementia. PLAN: Plan is awaiting for the rehab screen. The patient wants to be do not attempt resuscitation. This is going to be changing the system. For now, we will continue current regimen. She will continue on aspirin 325 mg once a day for DVT prophylaxis. Job ID: [id number]
[2019-02-16] MEDS: Senokot S 8.6-50 MG TAB PO PRN (16:42)
[2019-02-16] MEDS: Cephalexin 250 MG CAP PO SCH (21:11)
[2019-02-16] MEDS: Atorvastatin Calcium 20 MG TAB PO SCH (21:12)
[2019-02-17] MEDS ORDERED: Fleet Enema 133 ML BOT PR SCH (10:45)
--- NOTE | 2019-02-17 11:02 | PDOC.PN ---
- Subjective Encounter Start Date: 02/17/19 Encounter Start Time: 07:40 pt does not have BM for 6-7 days, her apatite is poor Patient seen and examined. No overnight events - Objective Resuscitation Status - Order Detail: 02/16/19 12:06 Resuscitation Status Routine Resuscitation Status: DNAR: NO Resuscitation Discussed with: patient and her daughters MAR Reviewed: Yes Vital Signs & Weight: Vital Signs (12 hours) Temp Pulse Resp BP Pulse Ox 02/17/19 07:55 98.7 F 56 L 16 128/52 L 93 L Weight Admit Weight 126 lb Weight 125 lb 1.6 oz I&O: 02/16/19 02/17/19 02/18/19 06:59 06:59 06:59 Intake Total 856 Balance 856 Result Diagrams: 02/16/19 05:36 02/16/19 05:36 EKG Reviewed by me: Yes Phys Exam - Physical Examination Constitutional: NAD HEENT: PERRLA, moist MMs, sclera anicteric Neck: no JVD, supple Respiratory: no wheezing, no rales, no rhonchi Cardiovascular: RRR, no significant murmur, no rub Gastrointestinal: soft, non-tender, no distention, positive bowel sounds Musculoskeletal: no edema, pulses present Neurological: non-focal, normal sensation, moves all 4 limbs Lymphatic: no nodes Psychiatric: normal affect, A&O x 3 Skin: no rash, normal turgor Dx/Plan (1) Dementia Code(s): F03.90 - UNSPECIFIED DEMENTIA WITHOUT BEHAVIORAL DISTURBANCE Status: Chronic (2) Hyponatremia Code(s): E87.1 - HYPO-OSMOLALITY AND HYPONATREMIA Status: Acute Comment: due to SIADH (3) TIA (transient ischemic attack) Code(s): G45.9 - TRANSIENT CEREBRAL ISCHEMIC ATTACK, UNSPECIFIED Status: Acute (4) Constipation Code(s): K59.00 - CONSTIPATION, UNSPECIFIED Status: Acute (5) Hypokalemia Code(s): E87.6 - HYPOKALEMIA Status: Acute - Plan cont current plan of care, plan discussed w/ family, PT/OT, drug abuse social worker * will give her fleet enema * discussed with family * await rehab placement * medication reviewed as below * symptomatic treatment. Review of Systems - Review of Systems ENT: negative: Ear Pain, Ear Discharge, Nose Pain, Nose Discharge, Nose Congestion, Mouth Pain, Mouth Swelling, Throat Pain, Throat Swelling, Other Respiratory: negative: Cough, Dry, Shortness of Breath, Hemoptysis, SOB with Excertion, Pleuritic Pain, Sputum, Wheezing Cardiovascular: negative: chest pain, palpitations, orthopnea, paroxysmal nocturnal dyspnea, edema, light headedness, other Gastrointestinal: Constipation. negative: Nausea, Vomiting, Abdominal Pain, Diarrhea, Melena, Hematochezia, Other Genitourinary: negative: Dysuria, Frequency, Incontinence, Hematuria, Retention , Other Musculoskeletal: negative: Neck Pain, Shoulder Pain, Arm Pain, Back Pain, Hand Pain, Leg Pain, Foot Pain, Other Skin: negative: Rash, Lesions, Steven, Bruising, Other - Medications/Allergies Allergies/Adverse Reactions: Allergies Allergy/AdvReac Type Severity Reaction Status Date / Time ciprofloxacin [From Cipro] Allergy Verified 10/24/15 21:07 ciprofloxacin HCl Allergy Verified 10/24/15 21:07 [From Cipro] Sulfa (Sulfonamide Allergy Verified 10/24/15 21:08 Antibiotics) Medications: Current Medications Acetaminophen (Tylenol) 650 mg PO Q4H PRN PRN Reason: Headache/Fever/Mild Pain (1-3) Aspirin (Aspirin) 325 mg PO QAM-WM [facility] Last Admin: 02/16/19 09:45 Dose: 325 mg Atenolol (Tenormin) 25 mg PO BID [facility] Last Admin: 02/16/19 21:11 Dose: 25 mg Atorvastatin Calcium (Lipitor) 20 mg PO HS [facility] Last Admin: 02/16/19 21:12 Dose: 20 mg Cephalexin (Keflex) 250 mg PO QPM [facility] Last Admin: 02/16/19 21:11 Dose: 250 mg Clonidine (Catapres) 0.1 mg PO Q4H PRN PRN Reason: Hypertension Diphenhydramine HCl (Benadryl) 25 mg PO Q4H PRN PRN Reason: Itching & Insomnia Last Admin: 02/13/19 18:52 Dose: 25 mg Enoxaparin Sodium (Lovenox) 30 mg SC 0900 [facility] Last Admin: 02/16/19 09:45 Dose: 30 mg Famotidine (Pepcid) 20 mg PO DAILY [facility] Last Admin: 02/16/19 09:47 Dose: 20 mg Hydralazine HCl (Apresoline) 10 mg SLOW IVP Q4H PRN PRN Reason: SBP > 180 and HR < 70 Lorazepam (Ativan) 0.5 mg SLOW IVP Q6H PRN PRN Reason: Anxiety/Agitation Last Admin: 02/14/19 01:18 Dose: 0.5 mg Melatonin (Melatonin) 3 mg PO HSPRN PRN PRN Reason: Insomnia Last Admin: 02/13/19 22:18 Dose: 3 mg Ondansetron HCl (Zofran) 4 mg IVP Q6H PRN PRN Reason: Nausea/Vomiting Last Admin: 02/12/19 23:16 Dose: 4 mg Senna/Docusate Sodium (Senokot S) 2 tab PO BIDPRN PRN PRN Reason: Constipation Last Admin: 02/16/19 16:42 Dose: 2 tab Sodium Biphosphate/Sodium Phosphate (Fleet Enema) 133 ml [place] [facility] Stop: 02/17/19 12:45 Sodium Chloride (Flush - Normal Saline) 10 ml IVF PRN PRN PRN Reason: Saline Flush Last Admin: 02/14/19 01:21 Dose: 10 ml
[2019-02-17] MEDS: Enoxaparin Sodium 30 MG/0.3 ML SYRINGE SC SCH (11:36)
[2019-02-17] MEDS: Atenolol 50 MG TAB PO SCH ×2 (11:37→22:04)
[2019-02-17] MEDS: Famotidine 20 MG TAB PO SCH (11:37)
[2019-02-17] MEDS: Aspirin 325 MG TAB PO SCH (11:38)
[2019-02-17] MEDS: Senokot S 8.6-50 MG TAB PO PRN (11:44)
--- NOTE | 2019-02-17 11:50 | PRG ---
DATE OF SERVICE: 02/17/2019 SUBJECTIVE: Patient was seen and examined at bedside and overnight events noted. Patient denies any shortness of breath or chest pain or palpitation. No history of nausea or vomiting or diarrhea or fever or chills or cramps. OBJECTIVE: GENERAL: This is a well-built female, in no apparent distress. VITAL SIGNS: Temperature 98.7. Pulse . Respiratory rate 16. Blood pressure 128/52. HEENT: Atraumatic, normocephalic. Oral mucosa is moist NECK: Supple. CARDIOVASCULAR: S1, S2 heard. Rate and rhythm regular. RESPIRATORY: Clear to auscultation. GASTROINTESTINAL: Abdomen is soft. MUSCULOSKELETAL: No tenderness. No edema. DERMATOLOGIC: No skin rash. NEUROLOGIC: Alert and awake and oriented X3. No focal neurologic deficits. Moving all the extremities. PSYCHIATRIC: Mood and affect normal. LABORATORY DATA: No labs done today. ASSESSMENT AND PLAN: 1. Hyponatremia. Limit fluid intake. Continue to monitor. 2. Hypochloremia. 3. Hypertension. 4. Anemia. 5. Acute kidney injury, stable. Monitor labs. Limit fluid intake. I will sign off. Please call back with any questions. Job ID: [id number]
[2019-02-17] MEDS: Cephalexin 250 MG CAP PO SCH (22:03)
[2019-02-17] MEDS: Atorvastatin Calcium 20 MG TAB PO SCH (22:04)
[2019-02-18] MEDS: Atenolol 50 MG TAB PO SCH (09:32)
[2019-02-18] MEDS: Aspirin 325 MG TAB PO SCH (09:32)
[2019-02-18] MEDS: Famotidine 20 MG TAB PO SCH (09:32)
[2019-02-18] MEDS: Enoxaparin Sodium 30 MG/0.3 ML SYRINGE SC SCH (09:33)
--- NOTE | 2019-02-18 13:06 | PDOC.EVN ---
Event Note - Event Note Event Note: DC SUMMARY #[id number]
--- NOTE | 2019-02-18 13:09 | PDOC.PN ---
- Subjective Encounter Start Date: 02/18/19 Encounter Start Time: 13:07 Patient seen and examined, no new issues or complaints. - Objective Resuscitation Status - Order Detail: 02/16/19 12:06 Resuscitation Status Routine Resuscitation Status: DNAR: NO Resuscitation Discussed with: patient and her daughters Vital Signs & Weight: Vital Signs (12 hours) Temp Pulse Resp BP Pulse Ox 02/18/19 11:29 97.5 F L 58 L 16 133/53 L 95 02/18/19 09:32 54 L 02/18/19 08:30 93 L 02/18/19 07:54 97.9 F 54 L 16 147/60 H 93 L 02/18/19 04:00 98.3 F 57 L 18 126/62 93 L Weight Admit Weight 126 lb Weight 125 lb 1.6 oz I&O: 02/17/19 02/18/19 02/19/19 06:59 06:59 06:59 Intake Total 856 Balance 856 Result Diagrams: 02/16/19 05:36 02/16/19 05:36 Phys Exam - Physical Examination Constitutional: NAD HEENT: PERRLA, moist MMs Neck: no nodes, no JVD, supple Respiratory: no wheezing, no rales, no rhonchi Cardiovascular: RRR, no significant murmur, no rub Gastrointestinal: soft, non-tender, no distention Musculoskeletal: no edema, pulses present Dx/Plan (1) Hypokalemia Code(s): E87.6 - HYPOKALEMIA Status: Acute (2) Hyponatremia Code(s): E87.1 - HYPO-OSMOLALITY AND HYPONATREMIA Status: Acute Comment: due to SIADH (3) TIA (transient ischemic attack) Code(s): G45.9 - TRANSIENT CEREBRAL ISCHEMIC ATTACK, UNSPECIFIED Status: Acute (4) Dementia Code(s): F03.90 - UNSPECIFIED DEMENTIA WITHOUT BEHAVIORAL DISTURBANCE Status: Chronic - Plan * Pending rehab placement * no changes in plan of care * DC once rehab arranged
[2019-02-18] MEDS: Cephalexin 250 MG CAP PO SCH (22:20)
[2019-02-18] MEDS: Atorvastatin Calcium 20 MG TAB PO SCH (22:21)
[2019-02-18] MEDS: Atenolol 25 MG TAB PO SCH (22:21)
[2019-02-19] MEDS: Aspirin 325 MG TAB PO SCH (08:25)
[2019-02-19] MEDS: Famotidine 20 MG TAB PO SCH (08:25)
[2019-02-19] MEDS: Atenolol 25 MG TAB PO SCH (08:25)
[2019-02-19] MEDS: Enoxaparin Sodium 30 MG/0.3 ML SYRINGE SC SCH (08:25)
[2019-02-19 15:48] VITALS: BP 141/52; TEMP 97.6
--- NOTE | 2019-02-21 11:47 | DIS ---
DATE OF ADMISSION: 02/14/2019 DATE OF DISCHARGE: 02/19/2019 ADMITTING DIAGNOSES: Altered mental status, hyponatremia, Syndrome of inappropriate antidiuretic hormone secretion, transient ischemic attack, advanced dementia. DISCHARGE DIAGNOSES: 1. Altered mental status, resolved. 2. Hyponatremia secondary to syndrome of inappropriate antidiuretic hormone secretion, stable. 3. Cerebrovascular accident, ruled out. 4. Transient ischemic attack. 5. Hypertension. 6. Hyperlipidemia. HOSPITAL COURSE: This is an 83-year-old female presenting with encephalopathy and altered mental status, TIA, rule out for acute CVA, admitted to Internal Medicine Team, was seen by Neurology as well as Nephrology for hyponatremia, was monitored for about a week in the hospital. Physical therapy was given as well. At point in time of discharge, the patient was stable, did not have any issues or complaints. No worsening of her symptoms. Per patient, she was back to her baseline. Arrangements were made for the patient to go to a rehab. The patient was to be discharged to rehab and then follow up with PCP a week after rehab discharge as well as continue medical rehabilitation outside the hospital. CONDITION: Upon the time of discharge was stable. The patient did not have any nausea, vomiting, diarrhea, constipation, chest pain, fevers, or shortness of breath. DISPOSITION: Rehab. FOLLOWUP: Follow up with PCP 1 week after rehab discharge. MEDICATIONS: See MAR. ACTIVITY: As tolerated with assistance as needed. DIET: Low-fat, low-calorie, high-fiber diet. CONDITION: Stable. PROGNOSIS: Guarded. Job ID: [id number]
== END 2019-02-19 16:03 | DRG 644 ==
LOC: ERS 19:05 → 2SE 22:38 → OBSVTOIN 02-14 14:13
PROVIDERS: ADMIT Hospitalist; ATTEND Hospitalist
DX: E22.2 Syndrome of inappropriate secretion of antidiuretic hormone (principal); G45.9 Transient cerebral ischemic attack, unspecified; N17.9 Acute kidney failure, unspecified; G93.40 Encephalopathy, unspecified; F03.90 Unspecified dementia, unspecified severity, without behavioral disturbance, psychotic disturbance, mood disturbance, and anxiety; I10 Essential (primary) hypertension; Z66 Do not resuscitate; K21.9 Gastro-esophageal reflux disease without esophagitis; E87.6 Hypokalemia; K59.00 Constipation, unspecified; E87.8 Other disorders of electrolyte and fluid balance, not elsewhere classified; D64.9 Anemia, unspecified; Z98.51 Tubal ligation status; Z90.49 Acquired absence of other specified parts of digestive tract; Z79.899 Other long term (current) drug therapy; Z87.891 Personal history of nicotine dependence; Z90.89 Acquired absence of other organs; Z85.820 Personal history of malignant melanoma of skin; Z88.1 Allergy status to other antibiotic agents; Z88.2 Allergy status to sulfonamides
CPT/HCPCS: 36415; 51701; 70450; 70551; 71045; 80048; 80053; 80061; 81003; 82550; 83880; 83930; 83935; 84300; 84443; 84484; 85025; 87086; 90471; 90670; 93005; 93306; 93880; 94760; 96361; 96374; A4353; G0009; J1650; J1940; J2060; J2405; Q0163

== ENCOUNTER 2019-06-05 11:02 | Emergency (ER) | payer MEDICARE, BC ==
[~2019-06-05 11:02] MED LIST: Iopamidol 370 76% 100 ML VIAL ONE
[2019-06-05 11:44] LABS: #Basophils 0.1 thou/uL (0.0-0.2); #Eosinphils 0.3 thou/uL (0.0-0.7); #Lymphocytes 1.3 thou/uL (1.20-3.40); #Monocytes 0.5 thou/uL (0.11-0.59); #Neutrophils 2.8 thou/uL (1.40-6.50); %Lymphocytes 26.3 % (21.0-51.0); %Monocytes 10.7 % (0.0-10.0); %Neutrophils 56.1 % (42.0-75.0); Hemoglobin 11.9 g/dL (12.0-16.0); Mean Corpuscular HGB CONC 34.3 g/dL (32.0-36.0); Mean Corpuscular Hemoglobin 33.1 pg (27.0-31.0); Mean Corpuscular Volume 96.3 fL (78.0-98.0); Mean Platelet Volume 8.5 fL (7.4-10.4); Platelet Count 223 thou/uL (130-400); RBC Distribution Width 13.2 % (11.5-14.5); Red Blood Cell (RBC) Count 3.59 mill/uL (4.20-5.40)
[2019-06-05 11:59] LABS: ALT (SGPT) 17 U/L (8-55); AST (SGOT) 18 U/L (5-34); Albumin 3.7 g/dL (3.4-4.8); Alkaline Phosphatase 100 U/L (40-150); Anion Gap 19 mmol/L (10-20); BUN (Urea Nitrogen) 16 mg/dL (9.8-20.1); Bilirubin, Total 0.3 mg/dL (0.2-1.2); Calc. Creatinine Clearance 0 mL/min (70-130); Calcium 9.8 mg/dL (7.8-10.44); Carbon Dioxide 22 mmol/L (23-31); Chloride 102 mmol/L (98-107); Estimated GFR-MDRD 39; Globulin 3.1 g/dL (2.4-3.5); Glucose 133 mg/dL (83-110); Lipase 44 U/L (8-78); Potassium 4.5 mmol/L (3.5-5.1); Protein, Total 6.8 g/dL (6.0-8.3); Sodium 138 mmol/L (136-145)
--- NOTE | 2019-06-05 12:36 | RAD ---
Exam: Chest one view: HISTORY: Abdominal pain COMPARISON: 02/12/2019 FINDINGS: Cardiomegaly with bilateral increased linear and interstitial markings and bilateral vascular congest ion. Evidence for a hiatal hernia. Some of these interstitial changes in the lung zones may well represent some component of chronic interstitial lung disease. IMPRESSION: Cardiomegaly with prominent increased linear and interstitial parenchymal changes bilaterally, overal l stable. Some component of these changes may well be chronic although some minimal acute edema is a consideration as well. No confluent lobar pneumonia.
[2019-06-05 12:49] LABS: Bilirubin Negative (Negative); Blood, Urine Negative (Negative); Clarity Cloudy (Clear); Glucose, Urine (Dipstick) Negative (Negative); Leukocyte Moderate (Negative); Nitrite Positive (Negative); Protein, Urine (Dipstick) Negative (Neg-Trace); Urobilinogen 0.2 mg/dL (Less than 2)
[2019-06-05 12:52] LABS: Bacteria/HPF 3+ HPF (None Seen); Squamous Epithelial 0-3 HPF (0-3); WBC/HPF 21-50 HPF (0-3)
--- NOTE | 2019-06-05 12:57 | CT ---
EXAM: Abdomen and pelvic CT scan with contrast: HISTORY: Abdominal pain COMPARISON: 05/30/2015 FINDINGS: There are some chronic linear parenchymal changes noted in the lung bases as well as evidence for sca rring anteriorly in the right lower lobe as well as the right middle lobe with some associated bronchiectasis and minimal scarring in the left base. In addition there are several new primarily rig ht-sided nodules up to 0.9 cm in size concerning for metastasis. Moderate size hiatal hernia. Liver: 0.8 cm diameter stable low-density nodule in the inferior right lobe of the liver. Gallbladder:Status post cholecystectomy. Pancreas:Unremarkable Spleen:Unremarkable. Adrenal glands:Unremarkable. Kidneys:Renal vascular calcification without overt renal calculi or acute obstruction. Multiple bilateral renal cysts. Small umbilical hernia with fluid but no evidence for associated bowel involvement. No evidence for bowel obstruction. No CT evidence for acute appendicitis. The urinary bladder is unremarkable. Reproductive system:Unremarkable No abscess, adenopathy, or abnormal fluid collection within the abdomen or pelvis. IMPRESSION: Extensive chronic lung changes bilaterally. New poorly circumscribed nodules in the lower lung zones, more so on the right side, worrisome for me tastasis. Other nonemergent findings as above, overall stable.
== END 2019-06-05 13:15 | disposition home or self-care (01) ==
LOC: SCSER 11:02
DX: N39.0 Urinary tract infection, site not specified (principal); K76.89 Other specified diseases of liver; R91.8 Other nonspecific abnormal finding of lung field; I10 Essential (primary) hypertension; F03.90 Unspecified dementia, unspecified severity, without behavioral disturbance, psychotic disturbance, mood disturbance, and anxiety; Z86.73 Personal history of transient ischemic attack (TIA), and cerebral infarction without residual deficits; Z87.891 Personal history of nicotine dependence; Z79.82 Long term (current) use of aspirin; Z79.899 Other long term (current) drug therapy
CPT/HCPCS: 71045; 74177; 80053; 81003; 81015; 83690; 83880; 84484; 85025; 87077; 87086; 87186; 93005

== ENCOUNTER 2020-03-08 09:24 | Outpatient (CLI) | payer MEDICARE, BC ==
--- NOTE | 2020-03-08 12:58 | PET ---
Exam: PET scan with CT attenuation correction HISTORY: Solitary pulmonary nodule. COMPARISON: None. CORRELATION: Chest CT 02/16/2020. TECHNIQUE: PET scan with CT attenuation correction was performed from the base of the brain to the pr oximal thighs following the intravenous administration of 10.7 mCi of [id number]. FINDINGS: Head and neck: No abnormal FDG localization. Chest: There are multiple noncalcified solid nodules throughout the lung parenchyma. Many of the nodu les are below imaging threshold criteria for PET imaging. There is a 0.8 x 1.4 cm nonhypermetabolic nodule in the right upper lobe. There is no evidence of a hypermetabolic lung parenchymal nodule. CT used for attenuation correction demonstrates cardiomegaly, coronary artery calcifications, calcifi ed subcarinal lymph node and a moderate hiatal hernia. Abdomen/Pelvis: No abnormal FDG localization. There is physiologic distribution of the radiotracer. C T used for attenuation correction demonstrates a left renal cyst. Osseous structures: No abnormal FDG localization. IMPRESSION: Multiple lung parenchymal nodules. The majority of these nodules are too small to assess by PET imagi ng due to its size threshold criteria. The larger lung parenchymal nodules do not demonstrate any FDG avidity. Depending on patient's risk factors, follow-up imaging can be performed in 6-12 months. Transcribed Date/Time: 03/08/2020 1:06 PM
== END 2020-03-08 09:25 | disposition home or self-care (01) ==
LOC: PET 09:24
PROVIDERS: ATTEND Internal Medicine Pulmonary Disease
DX: R91.8 Other nonspecific abnormal finding of lung field (principal)
CPT/HCPCS: 78815; A9552

== ENCOUNTER 2021-02-27 10:32 | Outpatient (CLI) | payer MEDICARE, BC | END 2021-02-27 10:33 | disposition home or self-care (01) | LOC: BICRAD 10:32 | PROVIDERS: ATTEND Internal Medicine Pulmonary Disease | DX: R06.00 Dyspnea, unspecified (principal); I51.7 Cardiomegaly; J98.4 Other disorders of lung | CPT/HCPCS: 71046 ==

== ENCOUNTER 2021-04-02 14:41 | Outpatient (CLI) | payer MEDICARE, BC | END 2021-04-02 14:42 | disposition home or self-care (01) | LOC: BICRAD 14:41 | PROVIDERS: ATTEND Internal Medicine Pulmonary Disease | DX: R06.00 Dyspnea, unspecified (principal); R91.8 Other nonspecific abnormal finding of lung field | CPT/HCPCS: 71046 ==